=== PATIENT | female | born 2000 | race Caucasian/White ===

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

== ENCOUNTER 2021-03-20 12:18 | Emergency (ER) | payer OTHER ==
[~2021-03-20] VITALS: Wt 56.7 kg
[~2021-03-20 12:18] MED LIST changes: +COGENTIN0.5 MG PO
[2021-03-20 12:26] VITALS: BP 115/62
== END 2021-03-20 15:58 | disposition home or self-care (01) ==
LOC: ED 12:18
DX: S80.11XA Contusion of right lower leg, initial encounter (principal); S40.022A Contusion of left upper arm, initial encounter; Z79.899 Other long term (current) drug therapy; V89.2XXA Person injured in unspecified motor-vehicle accident, traffic, initial encounter; Y93.89 Activity, other specified; Y92.488 Other paved roadways as the place of occurrence of the external cause; Y99.8 Other external cause status

== ENCOUNTER 2022-01-16 20:04 | Emergency (ER) | payer OTHER ==
[~2022-01-16] VITALS: Ht 160 cm; Wt 59.0 kg
[2022-01-16 20:09] VITALS: BP 131/85
[2022-01-16 20:50] LABS: BASO # 0.1 10*3/uL (0.0-0.1); BASO % 0.7 % (0.0-1.0); EOS # 0.1 10*3/uL (0.0-0.4); HEMATOCRIT 40.2 % (37.0-47.0); LYMPH # 2.3 10*3/uL (1.3-4.4); LYMPH % 33.2 % (27.0-41.0); MEAN CELL VOLUME 91.2 fl (81.0-99.0); MEAN CORPUSCULAR HGB CONC 35.1 g/dl (33.0-37.0); MEAN PLATELET VOLUME 9.2 fl (9.6-12.3); MONO # 0.4 10*3/uL (0.1-1.0); MONO % 6.3 % (3.0-9.0); NEUT # 3.9 10*3/uL (2.3-7.9); NEUT % 57.7 % (47.0-73.0); PLATELET COUNT AUTOMATED 385 10*3/uL (130-400); RED BLOOD COUNT 4.41 10*6/uL (4.10-5.10); RED CELL DISTRI WIDTH 11.3 % (0-14.5); WHITE BLOOD COUNT 6.8 10*3/uL (4.8-10.8)
[2022-01-16 21:01] LABS: ACT PARTIAL THROMBO TIME 26.1 SECONDS (20.0-32.1)
[2022-01-16 21:06] LABS: ALKALINE PHOSPHATASE 92 U/L (45-117); BUN 8 mg/dl (7-24); CHLORIDE 105 mmol/L (98-107); POTASSIUM 3.8 mmol/L (3.5-5.1); SGOT/AST 7 IU/L (3-35); SGPT/ALT 17 U/L (12-78); SODIUM 139 mmol/L (136-145); TOTAL PROTEIN 8.3 gm/dL (6.4-8.2)
[2022-01-16] MEDS ORDERED: PEPCID20 MG PO (21:33)
[2022-01-16] MEDS ORDERED: OMEPRAZOLE20 M2 PO (21:33)
== END 2022-01-16 21:40 | disposition home or self-care (01) ==
LOC: ED 20:04
PROVIDERS: Physician Assistant
DX: R07.9 Chest pain, unspecified (principal); R10.10 Upper abdominal pain, unspecified